=== PATIENT | male | born 1965 | race Caucasian/White ===

== ENCOUNTER → 2022-02-02 | Outpatient (CLI) | payer MEDICARE, MEDICAID ==
[~2022-02-02] VITALS: Ht 180 cm; Wt 79.5 kg
[~2022-02-02] MED LIST: ASPI-808 PO; CETI10TA49 PO; CYCL10TA25 PO; IBUP-1780 PO; LORA10TA76 PO; OMEP20TA33 PO
== END | disposition home or self-care (01) ==
LOC: PREOP 05:34
PROVIDERS: ATTEND Otolaryngology Otolaryngology/Facial Plastic Surgery
DX: Z01.818 Encounter for other preprocedural examination (principal)

== ENCOUNTER 2022-02-15 06:27 | Day surgery (SDC) | payer MEDICARE, MEDICAID ==
[~2022-02-15] VITALS: Ht 180 cm; Wt 79.5 kg
[2022-02-15] VITALS (10 sets, daily range): BP systolic 117–166; BP diastolic 73–90
[2022-02-15 07:02] LABS: BASOPHILS # (AUTO) 0.1 10^3/uL (0.0-0.1); BASOPHILS % (AUTO) 1 % (0-10); EOSINOPHILS # (AUTO) 0.4 10^3/uL (0.0-0.3); EOSINOPHILS % (AUTO) 4 % (0-10); HEMATOCRIT 48 % (40-54); HEMOGLOBIN 16.5 g/dL (13.3-17.7); LYMPHOCYTES # (AUTO) 1.8 10^3/uL (1.0-4.0); LYMPHOCYTES % (AUTO) 19 % (12-44); MEAN CORPUSCULAR HEMOGLOBIN 31 pg (25-34); MEAN CORPUSCULAR HGB CONC 35 g/dL (32-36); MEAN CORPUSCULAR VOLUME 90 fL (80-99); MEAN PLATELET VOLUME 8.6 fL (9.0-12.2); MONOCYTES % (AUTO) 10 % (0-12); NEUTROPHILS # (AUTO) 6.2 10^3/uL (1.8-7.8); NEUTROPHILS % (AUTO) 66 % (42-75); PLATELET COUNT 336 10^3/uL (130-400); WHITE BLOOD COUNT 9.5 10^3/uL (4.3-11.0)
[2022-02-15 07:17] LABS: CALCIUM 9.1 MG/DL (8.5-10.1)
[2022-02-15 07:21] LABS: CREATININE SERUM 0.76 MG/DL (0.60-1.30)
[2022-02-15] MEDS: LACTATED RINGERS 1,000 ML IV PRN ×2 (07:45→10:12)
[2022-02-15] MEDS ORDERED: LIDOCAINE/EPI 2% 1:100,00 (XYLOCAINE) 20 ML VIAL ONE (09:19)
[2022-02-15] MEDS ORDERED: fentaNYL INJ 100 MCG/2 ML AMP ONE (09:27)
[2022-02-15] MEDS ORDERED: LIDOCAINE PF 2% 5 ML (XYLOCAINE) VIAL ONE (09:27)
[2022-02-15] MEDS ORDERED: SEVOFLURANE (ULTANE) 15 ML INHAL SOLN ONE (09:27)
[2022-02-15] MEDS ORDERED: ONDANSETRON 4 MG/2 ML (SDV) Z0FRAN ONE (09:27)
[2022-02-15] MEDS ORDERED: proPOfol 200 MG/20 ML (DIPRIVAN) VIAL IV ONE (09:27)
[2022-02-15] MEDS ORDERED: MIDAZOLAM 2 MG/2 ML (VERSED) VIAL ONE (09:27)
[2022-02-15] MEDS ORDERED: SUCCINYLCHOLINE INJ 100 MG/5 ML SYR/VIAL ONE (09:45)
[2022-02-15] MEDS ORDERED: ROCURONIUM 50 MG/5 ML (ZEMURON) VIAL IV ONE (09:46)
--- NOTE | 2022-02-15 09:54 | Progress Note-Pre Operative ---
Pre-Operative Progress Note H&P Reviewed The H&P was reviewed, patient examined and no changes noted. Date Seen by Provider: February 15, 2022 Time Seen by Provider: : Date H&P Reviewed: February 15, 2022 Time H&P Reviewed: :30 Pre-Operative Diagnosis: Nasopahryngeal Mass, Left Pharyngeal Mass LELE MORIN MD February 15, 2022 09:54
--- NOTE | 2022-02-15 09:55 | Progress Note-Post Operative ---
Post-Operative Progess Note Surgeon (s)/Aircraft Pneudraulic Systems Mechanic (s) Surgeon LELE MORIN MD Aircraft Pneudraulic Systems Mechanic n/a Pre-Operative Diagnosis Nasopahryngeal Mass, Left Pharyngeal Mass Post-Operative Diagnosis same Post-Op Procedure Note Date of Procedure: February 15, 2022 Name of Procedure Performed: Nasopharyngeal Biopsy, Direct Laryngoscopy with Bipsy of Left Pharyngeal Wall Mass Description & Findings Description and Findings: n/a Anesthesia Type get Estimated Blood Loss minimal Packing none. Specimen(s) collected/removed nasopharyngeal biopsy and left pharyngeal biopsy -sent separtely to pathology LELE MORIN MD February 15, 2022 09:55
[2022-02-15] MEDS ORDERED: SUGAMMADEX 500 MG/5 ML VIAL (BRIDION) IV ONE (10:14)
[2022-02-15] MEDS ORDERED: PROMETHAZINE INJ 25 MG/ML (PHENERGAN) AMP IV PRN (10:30)
[2022-02-15] MEDS ORDERED: HYDROcodone/APAP 5 MG/325 MG (LORTAB) TAB PO PRN (10:30)
[2022-02-15] MEDS ORDERED: HYDROmorphone 2 MG/ML VIAL (DILAUDID) IV ONE (10:45)
[2022-02-15] MEDS ORDERED: ONDANSETRON 4 MG/2 ML (SDV) Z0FRAN IVP PRN (10:45)
[2022-02-15] MEDS ORDERED: ACHD5005 PO (11:53)
--- NOTE | 2022-02-15 12:30 | Anesthesia-General Post-Op ---
General Patient Condition Mental Status/LOC: Same as Preop Cardiovascular: Satisfactory Nausea/Vomiting: Absent Respiratory: Satisfactory Pain: Controlled Complications: Absent Post Op Complications Complications None Follow Up Care/Instructions Patient Instructions None needed. Anesthesia/Patient Condition Patient Condition Patient is doing well, no complaints, stable vital signs, no apparent adverse anesthesia problems. No complications reported per nursing. D/C home per [facility] [place] Criteria: Yes TRINO SURESH CRNA February 15, 2022 12:30
== END 2022-02-15 12:30 | disposition home or self-care (01) ==
LOC: SDC 06:27
PROVIDERS: ATTEND Otolaryngology Otolaryngology/Facial Plastic Surgery
DX: J31.1 Chronic nasopharyngitis (principal); F17.210 Nicotine dependence, cigarettes, uncomplicated
CPT/HCPCS: 36415; 80048; 85025; 87081; 88305; 93005